=== PATIENT | female | born 1965 | race Caucasian/White ===

== ENCOUNTER 2017-10-15 09:45 | Day surgery (SDC) | payer OTHER ==
[~2017-10-15 09:45] MED LIST: ALPR1 PO; Cipro250 MG PO; Enulose 2020 G/30 ML; Enulose10 GM/15 M PO; FURO20 PO; FURO40 PO; Hydroxyzine HCl50 MG PO; LACT10SY PO; Lasix40 MG PO; Omeprazole20 M1 PO; POTCHL20ER PO; SPIR50; SPIR50 PO; Zofran Odt4 MG SL
[2018-03-06] MEDS ORDERED: ZYRTEC10 M2 (10:23)
[2018-07-31] MEDS ORDERED: Oxycodone HCl5 M1 (09:27)
== END 2017-10-15 22:54 | disposition home or self-care (01) ==
LOC: US 09:45
PROC: 0W9G3ZZ Drainage of Peritoneal Cavity, Percutaneous Approach (ICD-10-PCS; principal; 2017-10-15)
DX: R18.8 Other ascites (principal)
CPT/HCPCS: 49083

== ENCOUNTER 2017-11-15 08:45 | Day surgery (SDC) | payer OTHER ==
[2018-03-06] MEDS ORDERED: ZYRTEC10 M2 (10:23)
[2018-07-31] MEDS ORDERED: Oxycodone HCl5 M1 (09:27)
== END 2017-11-15 23:29 | disposition home or self-care (01) ==
LOC: US 08:45
PROC: BW40ZZZ Ultrasonography of Abdomen (ICD-10-PCS; principal; 2017-11-15)
DX: K70.31 Alcoholic cirrhosis of liver with ascites (principal)
CPT/HCPCS: 76705

== ENCOUNTER 2018-01-17 11:03 | Day surgery (SDC) | payer OTHER | END 2018-01-17 22:57 | disposition home or self-care (01) | LOC: US 11:03 | PROC: BW40ZZZ Ultrasonography of Abdomen (ICD-10-PCS; principal; 2018-01-17) | DX: K70.31 Alcoholic cirrhosis of liver with ascites (principal) | CPT/HCPCS: 76705 ==